=== PATIENT | male | born 1995 | race African-American/Black ===

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

== ENCOUNTER 2017-04-09 19:37 | Emergency (ER) | payer MEDICAID, OTHER ==
[~2017-04-09] VITALS: Ht 198.1 cm; Wt 72.0 kg
[2017-04-09 19:58] VITALS: BP 119/68
[2017-04-09] MEDS ORDERED: KETOROLAC 30 MG/1 ML IM ONE (20:30)
[2017-04-09] MEDS ORDERED: KETOROLAC 30 MG/1 ML ONE (20:54)
== END 2017-04-09 21:35 | disposition home or self-care (01) ==
LOC: ED 20:10
DX: J02.8 Acute pharyngitis due to other specified organisms (principal); B97.89 Other viral agents as the cause of diseases classified elsewhere; G89.11 Acute pain due to trauma; M79.641 Pain in right hand
CPT/HCPCS: 71020; 73130; 96372; 99284; J1885

== ENCOUNTER 2017-04-26 21:35 | Emergency (ER) | payer MEDICAID, OTHER ==
[~2017-04-26] VITALS: Ht 200.7 cm; Wt 74.9 kg
[2017-04-26 22:20] LABS: BASOPHILS # (AUTO) 0.03 x10^3/uL (0-0.3); BASOPHILS % (AUTO) 1 % (0-1); EOSINOPHILS # (AUTO) 0.23 x10^3/uL (0-0.8); EOSINOPHILS % (AUTO) 4 % (1-7); LYMPHOCYTES # (AUTO) 1.62 x10^3/uL (1-6.1); LYMPHOCYTES % (AUTO) 26 % (22-44); MD NO; MEAN CORPUSCULAR HEMOGLOBIN 30.4 pg (27.5-34.5); MEAN CORPUSCULAR HGB CONC 32.7 g/dL (33.2-36.2); MEAN CORPUSCULAR VOLUME 93.1 fL (81-97); MEAN PLATELET VOLUME 9.4 fL (7.4-10.4); MONOCYTES # (AUTO) 0.52 x10^3/uL (0-1.4); MONOCYTES % (AUTO) 8 % (2-9); NEUTROPHILS # (AUTO) 3.91 x10^3/uL (1.8-8.0); NEUTROPHILS % (AUTO) 62 % (42-75); PLATELET COUNT 210 x10^3/uL (130-400); RED BLOOD COUNT 4.33 x10^6/uL (4.38-5.82); RED CELL DISTRIBUTION WIDTH 14.3 % (9.4-14.8)
[2017-04-26 22:31] LABS: ANION GAP 4 mmol/L (5-15); CALCIUM 9.3 mg/dL (8.5-10.1); CHLORIDE 107 mmol/L (98-107); CREATININE 1.08 mg/dL (0.7-1.3)
[2017-04-26 22:50] VITALS: BP 101/49
== END 2017-04-26 22:52 | disposition home or self-care (01) ==
LOC: ED 22:02
DX: R06.00 Dyspnea, unspecified (principal); R05 Cough; R07.89 Other chest pain
CPT/HCPCS: 36415; 80048; 85025; 85379; 93005; 99285

== ENCOUNTER 2018-01-31 06:05 | Emergency (ER) | payer SELFPAY ==
[~2018-01-31] VITALS: Ht 193 cm; Wt 73.0 kg
[2018-01-31 06:07] VITALS: BP 110/49
== END 2018-01-31 08:11 | disposition home or self-care (01) ==
LOC: ED 06:09
DX: S90.31XA Contusion of right foot, initial encounter (principal); G89.11 Acute pain due to trauma; J45.909 Unspecified asthma, uncomplicated; Z87.891 Personal history of nicotine dependence; X58.XXXA Exposure to other specified factors, initial encounter; Y93.89 Activity, other specified; Y92.89 Other specified places as the place of occurrence of the external cause; Y99.8 Other external cause status
CPT/HCPCS: 99284

== ENCOUNTER 2018-11-24 20:46 | Emergency (ER) | payer OTHER ==
[~2018-11-24] VITALS: Ht 203.2 cm; Wt 76.4 kg
[2018-11-24 22:43] VITALS: BP 106/64
== END 2018-11-24 22:47 | disposition home or self-care (01) ==
LOC: ED 22:41
DX: S93.491A Sprain of other ligament of right ankle, initial encounter (principal); F41.1 Generalized anxiety disorder; J45.909 Unspecified asthma, uncomplicated; Z87.891 Personal history of nicotine dependence; X50.1XXA Overexertion from prolonged static or awkward postures, initial encounter; Y93.89 Activity, other specified; Y92.89 Other specified places as the place of occurrence of the external cause; Y99.8 Other external cause status
CPT/HCPCS: 29515; 99283

== ENCOUNTER → 2019-03-30 | Outpatient (CLI) | payer MEDICAID, OTHER ==
[~2019-03-30] MED LIST changes: -ALPR-475 PO; +ALPR0.5T7 PO; +OMNIPAQUE 350 MG/ML, 75ML BOTTLE ONE
== END | disposition home or self-care (01) ==
LOC: RAD 13:41
PROVIDERS: ATTEND Dentist
DX: K14.8 Other diseases of tongue (principal)
CPT/HCPCS: 70487 ×2; Q9967 ×2